=== PATIENT | male | born 1985 | race African-American/Black ===

== ENCOUNTER 2016-10-14 20:46 | Emergency (ER) | payer SELFPAY ==
[~2016-10-14] VITALS: Ht 175.3 cm; Wt 64.6 kg
[2016-10-14 20:52] VITALS: TEMP 36.8; Ht 175.3 cm; Wt 64.6 kg
[2016-10-14] MEDS ORDERED: DOXYCYCLINE HYCLATE 100 MG CAP PO STA (21:10)
[2016-10-14] MEDS ORDERED: CEFTRIAXONE SOD 350MG/ML 1 GM VIAL IM ONE (21:15)
[2016-10-14] MEDS ORDERED: DOXY100C PO (21:15)
[2016-10-14 21:40] VITALS: BP 116/78; PULSE 52; O2SAT 98
--- NOTE | 2016-10-14 23:47 | EMERGENCY ROOM VISIT NOTE ---
History Report prepared by Kisha: Rock Wright Under the Supervision of: Dr. Jonathan Kelsey M.D. First contact with patient: 21:01 Chief Complaint: STD MALE Stated Complaint: DISCHARGE FROM PRIVATE AREA Nursing Triage Summary: Patient reports painful urination, and green d/c from penis X 2 days, history of unprotected sex 3 days ago. Patient denies any testicular pain, fever ,chills. History of Present Illness The patient is a 31 year old male who presents to the Emergency Room with complaints of persistent penile discharge for the past two days. The patient describes yellowish-green discharge. He denies any fevers or vomiting. The patient also complains of burning with urination. The patient has a history of STDs several years ago. He is sexually active with multiple partners. The patient believes he knows who the current infection is from. The patient is not diabetic and denies heart, lung, or kidney disease. Source of History: patient Onset: two days ago Position: other (penis) Quality: other (yellow-green discharge) Timing: other (persistent) Associated Symptoms: + urinary symptoms, No fevers, No vomiting Review of Systems See HPI for pertinent positives & negatives. A total of 10 systems reviewed and were otherwise negative. Past Medical & Surgical Medical Problems: (1) No known health problems Family History No pertinent family history Social History Smoking Status: Current Every Day Smoker Current/Historical Medications Scheduled Doxycycline Hyclate (Vibramycin), 100 MG PO BID Allergies Coded Allergies: No Known Allergies (Unverified , 10/14/16) Physical Exam Vital Signs Date Time Temp Pulse Resp B/P (MAP) Pulse Ox O2 Delivery O2 Flow Rate FiO2 10/14/16 21:40 52 16 116/78 98 10/14/16 20:52 36.8 111 18 113/75 97 Room Air Physical Exam GENERAL: Patient is in no acute distress. HEENT: No acute trauma, normocephalic atraumatic, mucous membranes moist, no nasal congestion, no scleral icterus. NECK: No stridor, no adenopathy, no meningismus, trachea is midline. LUNGS: Clear to auscultation bilaterally, no wheeze, no rhonchi, breath sounds equal. HEART: Without murmurs gallops or rubs, regular rate and rhythm. ABDOMEN: Soft, nontender, bowel sounds positive, no hernias, no peritonitis. EXTREMITIES: No cyanosis or edema, full range of motion of all the joints without pain or difficulty, no signs for acute trauma. NEUROLOGIC: Oriented x 3, no acute motor or sensory deficits, no focal weakness. SKIN: No rash, no jaundice, no diaphoresis. GENITAL: Circumcised, yellow to greenish discharge from the penile meatus, no groin adenopathy. Medical Decision & Procedures Laboratory Results Test 10/14/16 00:00 10/14/16 21:30 Medications Administered Medications (Trade) Dose Ordered Sig/Carlos Route Start Time Stop Time Status Last Admin Dose Admin Ceftriaxone Sodium (Rocephin Im) 500 mg NOW ONCE IM 10/14/16 21:15 10/14/16 21:16 DC 10/14/16 21:27 500 MG Doxycycline Hyclate (Vibramycin Cap) 100 mg NOW STAT PO 10/14/16 21:10 10/14/16 21:13 DC 10/14/16 21:27 100 MG ED Course 2104: The patient was evaluated in room C3. A complete history and physical exam was performed. 2109: Doxycycline Hyclate 100 mg PO. 2114: Rocephin 500 mg IM. 2114: Discussed the discharge instructions with the patient. He verbalized understanding and agreement. The patient is ready for discharge. Medical Decision Differential diagnosis includes GC or chlamydia, UTI, syphilis, scrotal or penile cellulitis. Medication Reconciliation: I attest that I have personally reviewed the patient' s current medication list. Blood Pressure Screening: Patient was found to have normal blood pressure on screening and does not require follow-up. The patient presents with penile discharge. He is sexually active. The discharge is consistent with GC and/or chlamydia. A culture was sent for analysis. An RPR was drawn. The patient is not toxic or febrile. He is being discharged on doxycycline, the first dose was given here orally. He also received a dose of IM ceftriaxone. The patient was encouraged to return for worsening symptoms. He will contact his sexual partners about this diagnosis. Impression Primary Impression: Penile discharge Additional Impression: STD (male) Scribe Attestation The scribe's documentation has been prepared under my direction and personally reviewed by me in its entirety. I confirm that the note above accurately reflects all work, treatment, procedures, and medical decision making performed by me. Departure Information Dispostion Home / Self-Care Prescriptions Doxycycline Hyclate (VIBRAMYCIN) 100 Mg Cap 100 MG PO BID for 10 Days, #20 CAP Prov: Jonathan Kelsey M.D. 10/14/16 Referrals No Doctor, Assigned (PCP) Forms HOME CARE DOCUMENTATION FORM, IMPORTANT VISIT INFORMATION Patient Instructions My [facility] Additional Instructions call here in a few days for you testing results---[phone] doxycycline 2x per day for 10 days encourage your sexual partners to be treated return if worsening Problem Qualifiers
[2016-10-19 07:28] LABS: CHLAMYDIA TRACH RNA*** NOT DETECTED (NOT DETECTED); GC (NEIS GONORRHOEAE)RNA** DETECTED (NOT DETECTED)
== END 2016-10-14 22:07 | disposition home or self-care (01) ==
LOC: C.EDB 20:48 → C.EDC 22:07
DX: A64 Unspecified sexually transmitted disease (principal); R30.0 Dysuria; F17.210 Nicotine dependence, cigarettes, uncomplicated